=== PATIENT | female | born 1950 | race Caucasian/White ===

== ENCOUNTER 2017-01-21 11:03 | Day surgery (SDC) | payer BC ==
[2017-01-14 15:23] VITALS: BMI 25.9
[2017-01-21] MEDS ORDERED: PROPOFOL 20 ML ONE ×5 (12:11)
[2017-01-21] MEDS ORDERED: LIDOCAINE HCL/PF 2% SDV 5ML VIAL ONE (12:11)
[2017-01-21 12:55] VITALS: TEMP 98.2
[2017-01-21 13:24] VITALS: PULSE 54
[2017-01-21 15:15] VITALS: BP 112/69
--- NOTE | 2017-01-24 12:46 | PATH ---
Surgical Pathology Report Patient Name: MARCY VIEIRA [facility]. Rec. #: [id number] /Age/Gender: 1950 (Age: 66) / F Account: [id number] Location: U-ENDOSCOPY Taken: 01/21/2017 Received: 01/21/2017 Reported: 01/24/2017 Physicians: Jesse Sierra M.D. Specimen(s) Received A: BX ANTRUM B: BX DISTAL PETERSON'S C: BX RECTAL POLYP Clinical History Family history of gastric malignancy, family history of colon cancer, polyp surveillance, Peterson's surveillance GERD, Peterson's esophagus, hiatal hernia, rectal polyp, diverticulosis Final Diagnosis A. STOMACH, ANTRUM, BIOPSY: GASTRIC ANTRAL AND FOCALLY OXYNTIC MUCOSA WITH MODERATE CHRONIC GASTRITIS AND MILD REACTIVE GASTROPATHY. IMMUNOSTAIN FOR H. PYLORI IS NEGATIVE FOR ORGANISMS. B. DISTAL PETERSON'S, BIOPSY: SQUAMOCOLUMNAR JUNCTIONAL MUCOSA WITH CHRONIC INFLAMMATION, REFLUX TYPE CHANGES AND EXTENSIVE INTESTINAL METAPLASIA (CONSISTENT WITH PETERSON'S ESOPHAGUS). NEGATIVE FOR DYSPLASIA. C. RECTUM, POLYP, POLYPECTOMY: FRAGMENTS OF HYPERPLASTIC POLYP. Electronically Signed Nomi Mora M.D. Gross Description A. Received in formalin, labeled "biopsy antrum" are 4 kelly, irregular portions of soft tissue ranging from 0.2-0.4 cm in greatest dimension. The specimens are submitted in toto in one cassette. B. Received in formalin, labeled "biopsy distal Peterson's" are 5 kelly, irregular portions of soft tissue ranging from 0.1-0.4 cm in greatest dimension. The specimens are submitted in toto in one cassette. C. Received in formalin, labeled "biopsy rectal polyp" are 3 kelly, irregular portions of soft tissue ranging from 0.1-0.4 cm in greatest dimension. The specimens are submitted in toto in one cassette. 01/21/201701/21/2017
== END 2017-01-21 15:15 | disposition home or self-care (01) ==
LOC: JASU-ENDO 11:03
PROVIDERS: ATTEND Internal Medicine Gastroenterology
PROC: 0DBP8ZX Excision of Rectum, Via Natural or Artificial Opening Endoscopic, Diagnostic (ICD-10-PCS; principal; 2017-01-21 12:00)
DX: Z12.11 Encounter for screening for malignant neoplasm of colon (principal); Z80.0 Family history of malignant neoplasm of digestive organs; K62.1 Rectal polyp; K64.9 Unspecified hemorrhoids
CPT/HCPCS: 88305-TC; 88342-TC

== ENCOUNTER 2020-07-02 04:48 | Day surgery (SDC) | payer OTHER ==
[2020-07-02 08:24] VITALS: BMI 27.4
[2020-07-02 09:56] VITALS: TEMP 97.2
[2020-07-02 11:16] VITALS: BP 151/69; PULSE 56
--- NOTE | 2020-07-03 17:37 | PATH ---
Surgical Pathology Report Patient Name: MARCY VIEIRA [facility]. Rec. #: [id number] /Age/Gender: 1950 (Age: 69) / F Account: [id number] Location: [facility]-ENDOSCOPY Taken: 07/02/2020 Received: 07/02/2020 Reported: 07/03/2020 Physicians: Jesse Sierra M.D. Specimen(s) Received A: ANTRUM BIOPSY B: 35 CM BIOPSY PETERSON'S SEGMENT C: 33 CM BIOPSY PETERSON'S SEGMENT D: 31 CM BIOPSY PETERSON'S SEGMENT E: RECTAL POLYP BIOPSY F: RIGHT COLON POLYP BIOPSY G: SIGMOID COLON POLYP BIOPSY Clinical History Peterson's esophagus surveillance, occult bleeding, history of polyps Postoperative diagnosis: Peterson's esophagus, hiatal hernia, diverticulosis, atrophic gastritis, colon polyps, hemorrhoids Final Diagnosis A. STOMACH, ANTRUM, BIOPSY: GASTRIC ANTRAL MUCOSA WITH MODERATE CHRONIC GASTRITIS. IMMUNOHISTOCHEMICAL STAIN FOR H. PYLORI IS NEGATIVE. B. PETERSON'S SEGMENT, 35 CM, BIOPSY: SQUAMOCOLUMNAR MUCOSA WITH MILD CHRONIC INFLAMMATION, CHANGES OF MILD REFLUX ESOPHAGITIS, AND INTESTINAL METAPLASIA CONSISTENT WITH PETERSON'S ESOPHAGUS IN A CONCORDANT CLINICAL SETTING. NO DYSPLASIA IDENTIFIED. C. PETERSON'S SEGMENT, 33 CM, BIOPSY: COLUMNAR MUCOSA WITH CHRONIC INFLAMMATION AND INTESTINAL METAPLASIA CONSISTENT WITH PETERSON'S ESOPHAGUS IN A CONCORDANT CLINICAL SETTING. NO DYSPLASIA IDENTIFIED. D. PETERSON'S SEGMENT, 31CM, BIOPSY: SQUAMOCOLUMNAR MUCOSA WITH MODERATE CHRONIC INFLAMMATION, CHANGES OF MODERATE REFLUX ESOPHAGITIS, AND INTESTINAL METAPLASIA CONSISTENT WITH PETERSON'S ESOPHAGUS IN A CONCORDANT CLINICAL SETTING. NO DYSPLASIA IDENTIFIED. E. RECTAL POLYP, BIOPSY: HYPERPLASTIC POLYP. F. COLON, RIGHT, POLYP, BIOPSY: TUBULAR ADENOMA. G. SIGMOID COLON, POLYP, BIOPSY: TUBULAR ADENOMA. Positive and negative controls (internal if applicable) show appropriate results. Electronically Signed Bharti Kay M.D. Gross Description A. Received in formalin, labeled "antrum biopsy" are 4 kelly, irregular portions of soft tissue ranging from 0.3-0.6 cm. in greatest dimension. The specimens are submitted in toto in one cassette. B. Received in formalin, labeled "35 cm biopsy Peterson's segment" are 3 kelly, irregular portions of soft tissue ranging from 0.2-0.3 cm. in greatest dimension. The specimens are submitted in toto in one cassette. C. Received in formalin, labeled "33 cm biopsy Peterson's segment" are 3 kelly, irregular portions of soft tissue ranging from 0.3-0.4 cm. in greatest dimension. The specimens are submitted in toto in one cassette. D. Received in formalin, labeled "31 cm biopsy Peterson's segment" are 2 kelly, irregular portions of soft tissue measuring 0.2 and 0.3 cm. in greatest dimension. The specimens are submitted in toto in one cassette. E. Received in formalin, labeled "rectal polyp biopsy" is a kelly, irregular portion of soft tissue measuring 0.3 cm. in greatest dimension. The specimen is submitted in toto in one cassette. F. Received in formalin, labeled "right colon polyp biopsy" is a kelly, irregular portion of soft tissue measuring 0.3 cm. in greatest dimension. The specimen is submitted in toto in one cassette. G. Received in formalin, labeled "sigmoid colon polyp biopsy" is a kelly, irregular portion of soft tissue measuring 0.2 cm. in greatest dimension. The specimen is submitted in toto in one cassette. DL07/02/2020 saudi07/02/2020
== END 2020-07-02 11:43 | disposition home or self-care (01) ==
LOC: JASU-ENDO 04:48
PROVIDERS: ATTEND Internal Medicine Gastroenterology
PROC: 0DBN8ZX Excision of Sigmoid Colon, Via Natural or Artificial Opening Endoscopic, Diagnostic (ICD-10-PCS; 2020-07-02)
PROC: 0DBP8ZX Excision of Rectum, Via Natural or Artificial Opening Endoscopic, Diagnostic (ICD-10-PCS; 2020-07-02)
PROC: 0DB38ZX Excision of Lower Esophagus, Via Natural or Artificial Opening Endoscopic, Diagnostic (ICD-10-PCS; 2020-07-02)
PROC: 0DB68ZX Excision of Stomach, Via Natural or Artificial Opening Endoscopic, Diagnostic (ICD-10-PCS; 2020-07-02)
PROC: 0DBK8ZX Excision of Ascending Colon, Via Natural or Artificial Opening Endoscopic, Diagnostic (ICD-10-PCS; principal; 2020-07-02 10:00)
DX: Z12.11 Encounter for screening for malignant neoplasm of colon (principal); Z86.010 Personal history of colon polyps; K64.8 Other hemorrhoids; K57.30 Diverticulosis of large intestine without perforation or abscess without bleeding; D12.2 Benign neoplasm of ascending colon; D12.5 Benign neoplasm of sigmoid colon; K62.1 Rectal polyp; K22.70 Barrett's esophagus without dysplasia; K44.9 Diaphragmatic hernia without obstruction or gangrene
CPT/HCPCS: 88305-TC; 88342-TC